=== PATIENT | male | born 1980 | race African-American/Black ===

== ENCOUNTER 2017-10-17 02:54 | Emergency (ER) | payer SELFPAY ==
[~2017-10-17] VITALS: Ht 182.9 cm; Wt 90.7 kg
[2017-10-17] MEDS ORDERED: Haloperidol 5mg/ml Inj IM ONE (03:00)
[2017-10-17] MEDS ORDERED: LORazepam Inj 2mg/ml 1ml IM ONE (03:00)
--- NOTE | 2017-10-17 03:09 | Emergency Room Report ---
History of Present Illness General Chief Complaint: To Be Triaged Source: Patient, Family Member Present Illness HPI Is a 37-year-old Afro-[place]ish male brought in by family for agitation and bizarre behavior. According to his brother, he smoked marijuana and woke up tonight very agitated. He was screaming and appeared to be paranoid. He was taken off his clothes. They grabbed him and put him in the car and brought him here. Here patient was screaming and pulling down is closed. He refuse to cooperate. His family try to restrain him with the help of security here. We were unsuccessful. Patient was yelling and very agitated. He keep asking for his mom. He thinks that somebody put some type of drugs in his system. His brother denied that he use anything other than marijuana. Denies any suicidal thoughts or homicidal thought. Denies any history of psychiatric admission. Allergies: Coded Allergies: UNABLE TO ASSESS (Unverified , 10/17/17) Patient History Past Medical History: see triage record, old chart reviewed Past Surgical History: other Social History: tobacco use, drug use Immunizations: other Reviewed Nursing Documentation: PMH: Agreed; PSxH: Agreed Review of Systems All Other Systems: limited - Secondary to his condition Physical Exam unable to get General Appearance: normal inspection, alert/responsive, other - Agitated, screaming Head: normocephalic, atraumatic Eyes: EOMI ENT: hearing intact Neck: full range of motion without pain Respiratory: effort normal Cardiovascular: no JVD Gastrointestinal: no mass Genitourinary: scrotum normal, penis normal Musculoskeletal: gait & station normal Neurologic: oriented x3, motor strength/tone normal, cerebellar normal Psychiatric: other - Patient appear to be paranoid. He is agitated. Skin: no rash, well hydrated Medical Decision Making Diagnostic Impression: Primary Impression: Agitation ER Course Patient with agitation. It was too dangerous for staff to try to physically restrain him. He was punching the ceiling. He was walking around naked. After 15 minutes of this he seemed to calm down. He refuse to have any medication. His brothers was able to talk him down and they did not want him to stay. I do not want him to be on a 5150 hold. They walked out with him. When I felt that he was a danger to staff, he called 911 to get police data control assistant. No fall, they did not show up. Status: improved Disposition: HOME, SELF-CARE Condition: Stable MARVA SWEENEY M.D. Oct 17, 2017 03:09
[2017-10-17 03:25] VITALS: BP 0/0
== END 2017-10-17 03:25 | disposition home or self-care (01) ==
LOC: EMR 03:06
DX: R45.1 Restlessness and agitation (principal)
CPT/HCPCS: 99283